=== PATIENT | female | born 1980 | race African-American/Black ===

== ENCOUNTER 2016-11-04 11:01 | Emergency (ER) | payer OTHER ==
[2016-11-04] MEDS ORDERED: ASPIRIN 81 MG TABLET, CHEWABLE PO ONE (11:19)
[2016-11-04 11:37] LABS: ABSOLUTE MONOCYTES (AUTO) 0.2 10^3/uL (0.1-1.4); ABSOLUTE NEUT (AUTO) 2.3 10^3/uL (1.7-8.2); BASOPHILS % (AUTO) 1.2 % (0-2); EOSINOPHILS % (AUTO) 1.1 % (0-6); HEMATOCRIT 42.2 % (36.0-47.0); HEMOGLOBIN 13.8 g/dL (12.0-15.5); HGB HCT DIFFERENCE -0.8; LYMPHOCYTES % (AUTO) 26.9 % (13-45); MEAN CORPUSCULAR HEMOGLOBIN 29.5 pg (27.0-33.4); MEAN CORPUSCULAR HGB CONC 32.8 g/dL (32.0-36.0); MEAN CORPUSCULAR VOLUME 90 fl (80-97); MONOCYTES % (AUTO) 6.9 % (3-13); RED BLOOD COUNT 4.68 10^6/uL (3.72-5.28); RED CELL DISTRIBUTION WIDTH 13.4 % (11.5-14.0); SEGMENTED NEUTROPHILS % (AUTO) 63.9 % (42-78); WHITE BLOOD COUNT 3.6 10^3/uL (4.0-10.5)
--- NOTE | 2016-11-04 11:50 | RADIOLOGY REPORT (SQ) ---
EXAM DESCRIPTION: CHEST SINGLE VIEW COMPLETED DATE/TIME: 11/04/2016 11:35 am REASON FOR STUDY: chest pain COMPARISON: None. NUMBER OF VIEWS: One view. TECHNIQUE: Single frontal radiographic view of the chest acquired. LIMITATIONS: None. FINDINGS: LUNGS AND PLEURA: No opacities, masses or pneumothorax. No pleural effusion. MEDIASTINUM AND HILAR STRUCTURES: No masses. Contour normal. HEART AND VASCULAR STRUCTURES: Heart normal in size. Normal vasculature. BONES: No acute findings. HARDWARE: None in the chest. OTHER: No other significant finding. IMPRESSION: NO SIGNIFICANT RADIOGRAPHIC FINDING IN THE CHEST. TECHNICAL DOCUMENTATION: JOB ID: [id number] [employer]- All Rights Reserved
[2016-11-04 11:55] LABS: ALANINE AMINOTRANSFERASE 25 U/L (9-52); ALBUMIN 4.6 g/dL (3.5-5.0); ALKALINE PHOSPHATASE 43 U/L (38-126); ANION GAP 10 (5-19); ASPARTATE AMINO TRANSFERASE 16 U/L (14-36); BILIRUBIN,DIRECT 0.2 mg/dL (0.0-0.4); BILIRUBIN,TOTAL 0.8 mg/dL (0.2-1.3); BLOOD UREA NITROGEN 14 mg/dL (7-20); CALCIUM 9.8 mg/dL (8.4-10.2); CARBON DIOXIDE 25 mmol/L (22-30); CHLORIDE 105 mmol/L (98-107); CREATINE KINASE 73 U/L (30-135); GLUCOSE 77 mg/dL (75-110); POTASSIUM 4.1 mmol/L (3.6-5.0); SODIUM 140.4 mmol/L (137-145); TOTAL PROTEIN 7.7 g/dL (6.3-8.2)
[2016-11-04 12:07] LABS: CREATINE KINASE MB 0.28 ng/mL (<4.55)
[2016-11-04 12:12] LABS: TROPONIN I < 0.012 ng/mL
--- NOTE | 2016-11-04 12:19 | ER Document Report ---
ED General - General Chief Complaint: Chest Pain Stated Complaint: CHEST PAIN Mode of Arrival: Ambulatory Information source: Patient Notes: 36-year-old female presents with complaints of one-week duration of chest pain. Patient denies any fevers or chills denies any shortness of breath. Patient notes the pain was initially on the right side of her chest now is on the left side. Patient notes it hurts when she palpates TRAVEL OUTSIDE OF THE [place] IN LAST 30 DAYS: No - HPI Onset: Last week Onset/Duration: Persistent, Waxing and waning Quality of pain: Pressure Severity: Mild Pain Level: 1 Associated symptoms: Body/muscle aches, Chest pain Exacerbated by: Movement Relieved by: Denies Similar symptoms previously: No Recently seen / treated by doctor: No - Related Data Allergies/Adverse Reactions: No Known Allergies Allergy (Verified 11/04/16 11:11) Past Medical History - Social History Smoking Status: Current Some Day Smoker Cigarette use (# per day): Yes Chew tobacco use (# tins/day): No Smoking Education Provided: No Frequency of alcohol use: None Drug Abuse: None Family History: Reviewed & Not Pertinent Patient has suicidal ideation: No Patient has homicidal ideation: No Renal/ Medical History: Denies: Hx Peritoneal Dialysis Surgical Hx: Negative - Immunizations Immunizations up to date: Yes Hx Diphtheria, Pertussis, Tetanus Vaccination: Yes Review of Systems - Review of Systems Notes: REVIEW OF SYSTEMS: CONSTITUTIONAL : Denies fever, chills, or sweats. Denies recent illness. EENT: Denies eye, ear, throat, or mouth pain or symptoms. Denies nasal or sinus congestion or discharge. Denies throat, tongue, or mouth swelling or difficulty swallowing. CARDIOVASCULAR: Admits to chest pain RESPIRATORY: Denies cough, cold, or chest congestion. Denies shortness of breath, difficulty breathing, or wheezing. GASTROINTESTINAL: Denies abdominal pain or distention. Denies nausea, vomiting , or diarrhea. Denies blood in vomitus, stools, or per rectum. Denies black, tarry stools. Denies constipation. GENITOURINARY: Denies difficulty urinating, painful urination, burning, frequency, blood in urine, or discharge. FEMALE GENITOURINARY: Denies vaginal bleeding, heavy or abnormal periods, irregular periods. Denies vaginal discharge or odor. MUSCULOSKELETAL: Denies back or neck pain or stiffness. Denies joint pain or swelling. SKIN: Denies rash, lesions or sores. HEMATOLOGIC : Denies easy bruising or bleeding. LYMPHATIC: Denies swollen, enlarged glands. NEUROLOGICAL: Denies confusion or altered mental status. Denies passing out or loss of consciousness. Denies dizziness or lightheadedness. Denies headache. Denies weakness or paralysis or loss of use of either side. Denies problems with gait or speech. Denies sensory loss, numbness, or tingling. Denies seizures. PSYCHIATRIC: Admits to stress and anxiety ALL OTHER SYSTEMS REVIEWED AND NEGATIVE. PHYSICAL EXAMINATION: GENERAL: Well-appearing, well-nourished and in no acute distress. HEAD: Atraumatic, normocephalic. EYES: Pupils equal round and reactive to light, extraocular movements intact, conjunctiva are normal. ENT: Nares patent, oropharynx clear without exudates. Moist mucous membranes. NECK: Normal range of motion, supple without lymphadenopathy LUNGS: Breath sounds clear to auscultation bilaterally and equal. No wheezes rales or rhonchi. HEART: Regular rate and rhythm without murmurs completely reproducible chest wall pain, patient jumped on palpation ABDOMEN: Soft, nontender, nondistended abdomen. No guarding, no rebound. No masses appreciated. Female : deferred Musculoskeletal: Normal range of motion, no pitting or edema. No cyanosis. NEUROLOGICAL: Cranial nerves grossly intact. Normal speech, normal gait. Normal sensory, motor exams PSYCH: Normal mood, normal affect. SKIN: Warm, Dry, normal turgor, no rashes or lesions noted. Dictation was performed using [employer] voice recognition software Physical Exam - Vital signs Vitals: Temp Pulse Resp BP Pulse Ox 98.0 F 65 16 113/72 98 11/04/16 11:13 11/04/16 11:13 11/04/16 11:13 11/04/16 11:13 11/04/16 11:13 Course - Re-evaluation Re-evalutation: 11/04/16 15:08 I have very low suspicion for any acute cardiac events, pain has been constant for 1 week and therefore cardiac enzymes should be elevated, first set of cardiac enzymes was negative and patient's pain is easily reproducible. Therefore I believe she is stable for discharge. Patient has been instructed to follow-up with her primary care physician as well as return precautions if there are any other concerns. Patient also notes that she is under a lot of stress and believes this may be the cause of her pain as well After performing a Medical Screening Examination, I estimate there is LOW risk for RUPTURED ESOPHAGUS, PNEUMOTHORAX, PULMONARY EMBOLISM, ACUTE CORONARY SYNDROME, OR THORACIC AORTIC DISSECTION, thus I consider the discharge disposition reasonable. I have reevaluated this patient multiple times and no significant life threatening changes are noted. The patient and I have discussed the diagnosis and risks, and we agree with discharging home with close follow-up. We also discussed returning to the Emergency Department immediately if new or worsening symptoms occur. We have discussed the symptoms which are most concerning (e.g., bloody sputum, worsening pain or shortness of breath) that necessitate immediate return. - Vital Signs Vital signs: Temp Pulse Resp BP Pulse Ox 97.9 F 61 20 116/72 100 11/04/16 12:31 11/04/16 12:31 11/04/16 12:31 11/04/16 12:31 11/04/16 12:31 - Laboratory Result Diagrams: 11/04/16 11:25 11/04/16 11:25 Laboratory results interpreted by me: 11/04/16 11:25 WBC 3.6 L - Diagnostic Test Radiology reviewed: Image reviewed - No acute abnormality report given to patient, Reports reviewed - EKG Interpretation by Me EKG shows normal: Sinus rhythm, [place], Intervals, QRS Complexes Discharge - Discharge Clinical Impression: Chest wall pain, Stress Condition: Stable Disposition: HOME, SELF-CARE Instructions: Chest Wall Pain ([facility]) Additional Instructions: Follow up with your physician tomorrow for further care or return to the ED IMMEDIATELY if symptoms worsen or new concerns occur. If you cannot afford to follow up with your primary care physician a list of low cost clinics have been provided at the end of your discharge papers as well. Prescriptions: Naproxen 500 mg PO BID #20 tablet Forms: Return to Work
[2016-11-04 12:33] VITALS: BP 116/72
--- NOTE | 2016-11-05 06:03 | EKG REPORT ---
SEVERITY:- NORMAL ECG - SINUS RHYTHM : Confirmed by: Rosangela Cook MD 05-Nov-2016 06:02:32
== END 2016-11-04 12:31 | disposition home or self-care (01) ==
LOC: ER 11:01
DX: R07.89 Other chest pain (principal); F43.9 Reaction to severe stress, unspecified; F41.9 Anxiety disorder, unspecified; F17.210 Nicotine dependence, cigarettes, uncomplicated
CPT/HCPCS: 36415; 71010; 80053; 82550; 82553; 84484; 85025; 93005; 93010; 99285

== ENCOUNTER 2017-01-10 09:42 | Emergency (ER) | payer OTHER ==
[2017-01-10 09:48] VITALS: BP 111/68
--- NOTE | 2017-01-10 10:15 | ER Document Report ---
ED General - General Chief Complaint: Chest Pain Stated Complaint: CHEST PAIN Time Seen by Provider: 01/10/17 10:04 Mode of Arrival: Ambulatory Information source: Patient Notes: 36-year-old female history of anxiety presents with complaints of feeling anxious. Patient notes when her stress level goes up she gets chest pains which move around and not reproducible, she also gets migraine headaches. Patient notes she has a history of migraine headaches denies this being any different. She denies any neurological deficits TRAVEL OUTSIDE OF THE [place] IN LAST 30 DAYS: No - HPI Onset: Other Onset/Duration: Waxing and waning Quality of pain: [place] Severity: Mild Pain Level: 1 Associated symptoms: Chest pain, Headache Exacerbated by: Other - stress - related to her son and relationship Relieved by: Denies Similar symptoms previously: Yes Recently seen / treated by doctor: Yes - Related Data Allergies/Adverse Reactions: No Known Allergies Allergy (Verified 01/10/17 09:45) Past Medical History - Social History Smoking Status: Never Smoker Cigarette use (# per day): No Chew tobacco use (# tins/day): No Smoking Education Provided: No Frequency of alcohol use: None Drug Abuse: None Family History: Reviewed & Not Pertinent Renal/ Medical History: Denies: Hx Peritoneal Dialysis - Immunizations Immunizations up to date: Yes Hx Diphtheria, Pertussis, Tetanus Vaccination: Yes Review of Systems - Review of Systems Notes: REVIEW OF SYSTEMS: CONSTITUTIONAL : Denies fever, chills, or sweats. Denies recent illness. EENT: Denies eye, ear, throat, or mouth pain or symptoms. Denies nasal or sinus congestion or discharge. Denies throat, tongue, or mouth swelling or difficulty swallowing. CARDIOVASCULAR: Admits to chest wall pain RESPIRATORY: Denies cough, cold, or chest congestion. Denies shortness of breath, difficulty breathing, or wheezing. GASTROINTESTINAL: Denies abdominal pain or distention. Denies nausea, vomiting , or diarrhea. Denies blood in vomitus, stools, or per rectum. Denies black, tarry stools. Denies constipation. GENITOURINARY: Denies difficulty urinating, painful urination, burning, frequency, blood in urine, or discharge. FEMALE GENITOURINARY: Denies vaginal bleeding, heavy or abnormal periods, irregular periods. Denies vaginal discharge or odor. MUSCULOSKELETAL: Denies back or neck pain or stiffness. Denies joint pain or swelling. SKIN: Denies rash, lesions or sores. HEMATOLOGIC : Denies easy bruising or bleeding. LYMPHATIC: Denies swollen, enlarged glands. NEUROLOGICAL: Admits to migraine headache PSYCHIATRIC: Admits to anxiety ALL OTHER SYSTEMS REVIEWED AND NEGATIVE. PHYSICAL EXAMINATION: GENERAL: Well-appearing, well-nourished and in no acute distress. HEAD: Atraumatic, normocephalic. EYES: Pupils equal round and reactive to light, extraocular movements intact, conjunctiva are normal. ENT: Nares patent, oropharynx clear without exudates. Moist mucous membranes. NECK: Normal range of motion, supple without lymphadenopathy LUNGS: Breath sounds clear to auscultation bilaterally and equal. No wheezes rales or rhonchi. HEART: Regular rate and rhythm without murmurs ABDOMEN: Soft, nontender, nondistended abdomen. No guarding, no rebound. No masses appreciated. Female : deferred Musculoskeletal: Normal range of motion, no pitting or edema. No cyanosis. Reproducible chest wall tenderness NEUROLOGICAL: Cranial nerves grossly intact. Normal speech, normal gait. Normal sensory, motor exams PSYCH: Anxious SKIN: Warm, Dry, normal turgor, no rashes or lesions noted. Dictation was performed using [employer] voice recognition software Physical Exam - Vital signs Vitals: Temp Pulse Resp BP Pulse Ox 98.7 F 64 18 111/68 100 01/10/17 09:45 01/10/17 09:45 01/10/17 09:45 01/10/17 09:45 01/10/17 09:45 Course - Re-evaluation Re-evalutation: 01/10/17 11:09 Initial presentation was concerning for rule out cardiac versus CVA issues however patient has no neurological deficits she has no risk factors for cardiac events or pulmonary emboli. I had seen the patient myself 2 months prior and treated with anti-inflammatories which seem to have resolved her symptoms however she notes when she gets stressed the symptoms come back. After talking with the patient for an extended period of time it appears that the anxiety is the actual issue at hand. She will be treated for her anxiety is otherwise stable After performing a Medical Screening Examination, I estimate there is LOW risk for RUPTURED ESOPHAGUS, PNEUMOTHORAX, PULMONARY EMBOLISM, ACUTE CORONARY SYNDROME, OR THORACIC AORTIC DISSECTION, thus I consider the discharge disposition reasonable. I have reevaluated this patient multiple times and no significant life threatening changes are noted. The patient and I have discussed the diagnosis and risks, and we agree with discharging home with close follow-up. We also discussed returning to the Emergency Department immediately if new or worsening symptoms occur. We have discussed the symptoms which are most concerning (e.g., bloody sputum, worsening pain or shortness of breath) that necessitate immediate return. - Vital Signs Vital signs: Temp Pulse Resp BP Pulse Ox 98.7 F 64 18 111/68 100 01/10/17 09:45 01/10/17 09:45 01/10/17 09:45 01/10/17 09:45 01/10/17 09:45 - EKG Interpretation by Me EKG shows normal: Sinus rhythm, [place], Intervals, QRS Complexes When compared to previous EKG there are: No significant change Discharge - Discharge Clinical Impression: Anxiety, Chest wall pain Condition: Stable Disposition: HOME, SELF-CARE Instructions: Anxiety (REPLACED BY [facility]) Additional Instructions: Follow up with your physician tomorrow for further care or return to the ED IMMEDIATELY if symptoms worsen or new concerns occur. If you cannot afford to follow up with your primary care physician a list of low cost clinics have been provided at the end of your discharge papers as well. Prescriptions: Hydroxyzine Pamoate [Vistaril 25 mg Capsule] 25 mg PO DAILY #30 capsule Lorazepam [Ativan 0.5 mg Tablet] 0.5 mg PO Q4 PRN #14 tab PRN Reason: Forms: Return to Work
--- NOTE | 2017-01-10 21:05 | EKG REPORT ---
SEVERITY:- NORMAL ECG - SINUS RHYTHM : Confirmed by: Rosangela Cook MD 10-Jan-2017 21:04:00
== END 2017-01-10 10:19 | disposition home or self-care (01) ==
LOC: ER 09:42
DX: F41.9 Anxiety disorder, unspecified (principal); R07.89 Other chest pain; R51 Headache
CPT/HCPCS: 93005; 93010; 99284

== ENCOUNTER 2017-02-14 12:11 | Emergency (ER) | payer SELFPAY ==
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
[2017-02-14] MEDS ORDERED: ASPIRIN 81 MG TABLET, CHEWABLE PO ONE (12:58)
[2017-02-14 13:35] LABS: ABSOLUTE LYMPHOCYTES (AUTO) 1.2 10^3/uL (0.5-4.7); ABSOLUTE MONOCYTES (AUTO) 0.2 10^3/uL (0.1-1.4); ABSOLUTE NEUT (AUTO) 1.9 10^3/uL (1.7-8.2); BASOPHILS % (AUTO) 1.2 % (0-2); EOSINOPHILS % (AUTO) 1.4 % (0-6); HEMOGLOBIN 13.8 g/dL (12.0-15.5); HGB HCT DIFFERENCE -0.6; LYMPHOCYTES % (AUTO) 35.8 % (13-45); MEAN CORPUSCULAR HEMOGLOBIN 29.5 pg (27.0-33.4); MEAN CORPUSCULAR HGB CONC 32.7 g/dL (32.0-36.0); MEAN CORPUSCULAR VOLUME 90 fl (80-97); MONOCYTES % (AUTO) 6.6 % (3-13); RED BLOOD COUNT 4.67 10^6/uL (3.72-5.28); RED CELL DISTRIBUTION WIDTH 13.7 % (11.5-14.0); WHITE BLOOD COUNT 3.4 10^3/uL (4.0-10.5)
[2017-02-14 13:51] LABS: ALANINE AMINOTRANSFERASE 25 U/L (9-52); ALBUMIN 4.3 g/dL (3.5-5.0); ALKALINE PHOSPHATASE 37 U/L (38-126); ANION GAP 10 (5-19); ASPARTATE AMINO TRANSFERASE 16 U/L (14-36); BILIRUBIN,DIRECT 0.2 mg/dL (0.0-0.4); BILIRUBIN,TOTAL 0.5 mg/dL (0.2-1.3); BLOOD UREA NITROGEN 14 mg/dL (7-20); CALCIUM 9.4 mg/dL (8.4-10.2); CARBON DIOXIDE 27 mmol/L (22-30); CHLORIDE 106 mmol/L (98-107); CREATINE KINASE 151 U/L (30-135); CREATININE RESULT 0.72 mg/dL (0.52-1.25); GLUCOSE 80 mg/dL (75-110); MAGNESIUM 2.1 mg/dL (1.6-2.3); POTASSIUM 4.4 mmol/L (3.6-5.0); SODIUM 142.9 mmol/L (137-145); TOTAL PROTEIN 7.3 g/dL (6.3-8.2)
[2017-02-14 14:03] LABS: CREATINE KINASE MB 0.37 ng/mL (<4.55)
[2017-02-14 14:05] LABS: TROPONIN I < 0.012 ng/mL
--- NOTE | 2017-02-14 14:08 | RADIOLOGY REPORT (SQ) ---
EXAM DESCRIPTION: CHEST SINGLE VIEW/ portable COMPLETED DATE/TIME: 02/14/2017 1:58 pm REASON FOR STUDY: chest pain LMP 02/07/2017 COMPARISON: 11/04/2016 EXAM PARAMETERS: NUMBER OF VIEWS: One view. TECHNIQUE: Single frontal radiographic view of the chest acquired. RADIATION DOSE: NA LIMITATIONS: None. FINDINGS: LUNGS AND PLEURA: No opacities, masses or pneumothorax. No pleural effusion. MEDIASTINUM AND HILAR STRUCTURES: No masses. Contour normal. HEART AND VASCULAR STRUCTURES: Heart normal in size. Normal vasculature. BONES: No acute findings. HARDWARE: None in the chest. OTHER: No other significant finding. IMPRESSION: NO ACUTE RADIOGRAPHIC FINDING IN THE CHEST. TECHNICAL DOCUMENTATION: JOB ID: [id number]
[2017-02-14 15:25] VITALS: BP 100/80
--- NOTE | 2017-02-15 15:25 | EKG REPORT ---
SEVERITY:- NORMAL ECG - SINUS RHYTHM : Confirmed by: Na Stratton 15-Feb-2017 15:24:47
== END 2017-02-14 15:32 | disposition home or self-care (01) ==
LOC: ER 12:11
DX: R07.9 Chest pain, unspecified (principal); F43.9 Reaction to severe stress, unspecified; F17.200 Nicotine dependence, unspecified, uncomplicated; R63.0 Anorexia; R42 Dizziness and giddiness; R05 Cough
CPT/HCPCS: 36415; 71010; 80053; 82550; 82553; 83735; 84443; 84484; 84703; 85025; 93005; 93010; 99285